=== PATIENT | female | born 1995 | race African-American/Black ===

== ENCOUNTER 2017-02-01 19:57 | Emergency (ER) | payer OTHER ==
[~2017-02-01] VITALS: Ht 154.9 cm; Wt 52.2 kg
[2017-02-01] MEDS ORDERED: TRAM50TA2 PO (20:08)
[2017-02-01] MEDS ORDERED: MELO7.5T7 PO (20:08)
[2017-02-01] MEDS ORDERED: BACL10TA2 PO (20:08)
[2017-02-02] MEDS ORDERED: PERCOCET 5MG/325MG TAB PO ONE
[2017-02-02] MEDS ORDERED: PERC5TAB12 PO (00:03)
[2017-02-02 00:10] VITALS: BP 123/58
[2017-05-02] MEDS ORDERED: IBUP-1114 PO (10:32)
[2017-05-02] MEDS ORDERED: ESCI10TA2 (10:32)
[2017-05-02] MEDS ORDERED: LORA10TA2 (10:32)
[2017-05-02] MEDS ORDERED: ACET30TAB PO (13:56)
[2017-05-02] MEDS ORDERED: PRED20TA PO (13:56)
== END 2017-02-02 00:11 | disposition home or self-care (01) ==
LOC: M ED 19:57
DX: M54.9 Dorsalgia, unspecified (principal); G89.29 Other chronic pain; Z87.891 Personal history of nicotine dependence; Z79.899 Other long term (current) drug therapy

== ENCOUNTER → 2017-02-13 | Outpatient (CLI) | payer OTHER ==
[~2017-02-13] MED LIST: ACET30TAB PO; BACL10TA2 PO; ESCI10TA2; IBUP-1114 PO; LORA10TA2; MELO7.5T7 PO; PERC5TAB12 PO; PRED20TA PO; TRAM50TA2 PO
[2017-02-13 17:50] LABS: MEAN CORPUSCULAR HEMOGLOBIN 32.5 pg (27.0-33.0); MEAN CORPUSCULAR HGB CONC 32.4 g/dl (32.0-36.5); MEAN CORPUSCULAR VOLUME 100.3 fl (80.0-96.0); RED CELL DISTRIBUTION WIDTH 12.1 % (11.5-14.5); WHITE BLOOD COUNT 9.1 K/mm3 (4.0-10.0)
[2017-02-13 18:03] LABS: ALBUMIN 4.2 GM/DL (3.2-5.2); ALBUMIN/GLOBULIN RATIO 1.27 (1.00-1.93); ALKALINE PHOSPHATASE 64 U/L (45-117); ALT/SGPT 13 U/L (12-78); ANION GAP 7 MEQ/L (8-16); AST/SGOT 10 U/L (15-37); BILIRUBIN,TOTAL 0.5 MG/DL (0.2-1.0); BLOOD UREA NITROGEN 13 MG/DL (7-18); CALCIUM LEVEL 9.2 MG/DL (8.5-10.1); CARBON DIOXIDE LEVEL 28 MEQ/L (21-32); CHLORIDE LEVEL 109 MEQ/L (98-107); CREATININE FOR GFR 0.72 MG/DL (0.55-1.02); GLOMERULAR FILTRATION RATE > 60.0 (>60); GLUCOSE, FASTING 80 MG/DL (70-105); SODIUM LEVEL 144 MEQ/L (136-145); TOTAL PROTEIN 7.5 GM/DL (6.4-8.2)
--- NOTE | 2017-02-14 07:13 | REP ---
Lumbar spine series: Five views. History: Chronic low back pain radiating down to the right hip. No comparison imaging. Findings: Lateral view shows straightening of the normal lumbar lordosis. Lumbar vertebral body heights are preserved. Alignment is normal. Disc spaces are maintained. On the frontal radiograph, the pedicles and posterior elements are intact. Psoas margins are symmetric. Sacrum and SI joints are intact. There is no evidence of spondylolysis or spondylolisthesis. Impression: Straightening. Otherwise negative lumbar spine radiographs. Signed by Darnell Chester MD 02/14/2017 08:46 A
== END ==
LOC: M WUC 15:40
PROVIDERS: ATTEND Nurse Practitioner Family
DX: M54.41 Lumbago with sciatica, right side (principal); G89.29 Other chronic pain